=== PATIENT | female | born 1960 | race Caucasian/White ===

== ENCOUNTER 2016-08-05 09:33 | Day surgery (SDC) | payer OTHER ==
--- NOTE | ~2016-08-05 | OP ---
Record Of Operation [facility] [address] [place]. [address] NAME: LA JOHNSON : 60 STATUS : REG [facility] PAT#: [id number] AGE: 56 ADM/REG DATE : 08/05/16 MR#: [id number] REPORT SERV DATE: 08/06/16 DICTATED BY: NARCISO DANIEL DATE: 08/06/16 REPORT STATUS : Draft TRANSCRIBED BY: BHARAT DATE: 08/06/16 DATE OF PROCEDURE: 08/05/2016 PREOPERATIVE DIAGNOSES: 1. Status post weight loss and bariatric surgery and status post abdominoplasty with upper abdominal tissue excess and laxity. 2. Medial thigh tissue laxity, excess ptosis, and lipodystrophy. POSTOPERATIVE DIAGNOSES: 1. Status post weight loss and bariatric surgery and status post abdominoplasty with upper abdominal tissue excess and laxity. 2. Medial thigh tissue laxity, excess ptosis, and lipodystrophy. PROCEDURE PERFORMED: 1. Upper abdominoplasty with extension to the posterior lateral contouring. 2. Medial thigh plasties. ANESTHESIA: General. ESTIMATED BLOOD LOSS: 75 mL. DETAILS OF PROCEDURE: After informed consent was obtained, patient was taken to the operating room, placed in supine position. General anesthesia was induced with endotracheal intubation. She was then positioned prone on the table, prepped and draped in usual sterile manner. She had been marked preoperatively. Preop chris were confirmed. The plan was for upper abdominoplasty removing excess skin and fatty tissue and contouring in the inframammary area. She had extensive skin excess in the lateral thoracic area and across the back as well, therefore, this area was addressed in the prone position. The areas of planned incision and dissection were infiltrated with local anesthetic and tumescent solution. Liposuction was performed for pretunneling and contouring. Then, the excision of the tissue was confirmed. The upper and lower incisions were then made sharply with a #10 scalpel. Dissection was then carried out with electrocautery removing excess skin and fatty tissue along the bra line. Hemostasis was then assured. 15 round Frank drains were placed and closure performed in a layered fashion with deep layer of 2-0 V-Loc 180 followed by skin closure of 3-0 and 4-0 Monocryl layered skin closure. 259.1 g tissue was removed from the back approximately 12 cm maximum dimension. She was then covered were sterile dressings, repositioned supine, prepped and draped in usual sterile manner. Attention was then turned to the upper abdominal area and medial thighs. These areas were infiltrated with local anesthetic and tumescent solution. Then, again, similar to the backside, pretunneling of the upper abdominal area was performed using liposuction cannulas. Then, the excision of the tissue was confirmed and the excision was performed sharply with electrocautery, removing 231.1 g from the left side and 217.8 g from the right side. This was approximately 10 cm of skin excess along the upper abdominal area that was removed. The upper abdominal excision met with the posterior incision and these areas were closed in layers. Fixation points were achieved with a deep layer with 2-0 PDS interrupted sutures. Then completion closure for the deep layer performed with 2-0 V-Loc 180 and skin closure with 3-0 and 4-0 Record Of Operation [address] [address] NAME: LA JOHNSON : 60 STATUS : REG [facility] PAT#: [id number] AGE: 56 ADM/REG DATE : 08/05/16 MR#: [id number] REPORT SERV DATE: 08/06/16 DICTATED BY: NARCISO DANIEL DATE: 08/06/16 REPORT STATUS : Draft TRANSCRIBED BY: BHARAT DATE: 08/06/16 [place]. Attention was then turned to the medial thighs, liposuction was performed of the medial thighs and anterior and medial knees as well, aspirating 800 mL between two sides. After this the excision was confirmed with stapling, then ervin removed, and starting on the left side, the excess skin and fatty tissue was excised sharply and with electrocautery, removing 148.3 g. This was the excess tissue of the upper medial thigh with maximum dimension and this elliptical hockey-stick type excision of 15 cm. After significant vessels to the excised skin and fatty tissue were doubly clamped, divided, and ligated as needed. 15 round Frank drain was then brought out through a separate stab incision. Sutured skin with 2-0 silk. Closure was then performed in a layered fashion with deep layer of 2-0 V-Loc 180 followed by 3-0 and 4-0 Monocryl layered closure. Similar procedure performed on the right side, 145.3 g was removed from the right, and similar with tissue excision. Liposuction was performed in the anterior medial knees, which was included in the aforementioned aspirate total. Sterile dressings were then applied. She was placed in postoperative garments, taken to the PACU in stable condition. TANIYA/BHARAT Narciso Daniel M.D. / [id number] CC: Omero Brooke Jr., M.D.
[~2016-08-05 09:33] MED LIST: P125 PO; T
[2016-08-05 09:59] LABS: HEMATOCRIT 37.9 % (36.0-48.0)
== END 2016-08-05 23:59 | disposition home or self-care (01) ==
LOC: MSC 09:33
PROVIDERS: Plastic Surgery
PROC: 0J080ZZ Alteration of Abdomen Subcutaneous Tissue and Fascia, Open Approach (ICD-10-PCS; principal; 2016-08-05 11:30)
DX: Z41.1 Encounter for cosmetic surgery (principal); E88.1 Lipodystrophy, not elsewhere classified; I10 Essential (primary) hypertension; K21.9 Gastro-esophageal reflux disease without esophagitis; Z98.890 Other specified postprocedural states; Z79.899 Other long term (current) drug therapy; Z90.89 Acquired absence of other organs; Z90.710 Acquired absence of both cervix and uterus; Z98.84 Bariatric surgery status
CPT/HCPCS: 85014; 85018; A9270-GY; J0690; J2250; J2405; J2710; J2795; J3010